=== PATIENT | male | born 1965 | race Caucasian/White ===

== ENCOUNTER 2017-06-08 18:17 | Emergency (ER) | payer SELFPAY ==
[~2017-06-08] VITALS: Ht 177.8 cm; Wt 80.0 kg
[2017-06-08 19:03] VITALS: BP 120/77; PULSE 113; RESP 18; TEMP 98.2; O2SAT 86
--- NOTE | 2017-06-08 20:52 | PD ---
HPI Chief Complaint: Alcohol/Drug Intoxication Time Seen by Provider: 20:40 Travel History International Travel<30 days: No Contact w/Intl Traveler<30days: No Traveled to known affect area: No History of Present Illness HPI 51-year-old male [place] [employer] for evaluation of alcohol intoxication. Apparently the patient became intoxicated in a public area and the police decided to bring him here. He has no medical complaints. He reports that he is on vacation from [place], arrived with a friend 5 days ago, and today he drinks 6 double shots. He reports that he has not had any alcohol in over 18 years and so he became intoxicated. He denies any injuries and he has no complaints at this time. [facility] Social History Alcohol Use: Yes Tobacco Use: Yes Allergies-Medications (Allergen,Severity, Reaction): Coded Allergies: No Known Allergies (Unverified , 06/08/17) Review of Systems ROS Limitations: Intoxication Except as stated in HPI: all other systems reviewed are Neg Physical Exam Exam Limitations: Intoxication Narrative GENERAL: Well-developed well-nourished male answering questions appropriately but obviously intoxicated. SKIN: Warm and dry. HEAD: Atraumatic. Normocephalic. EYES: Pupils equal and round. No scleral icterus. No injection or drainage. ENT: No nasal bleeding or discharge. Mucous membranes pink and moist. NECK: Trachea midline. No JVD. CARDIOVASCULAR: Regular rate and rhythm. No murmur appreciated. RESPIRATORY: No accessory muscle use. Clear to auscultation. Breath sounds equal bilaterally. GASTROINTESTINAL: Abdomen soft, non-tender, nondistended. Hepatic and splenic margins not palpable. MUSCULOSKELETAL: No obvious deformities. No clubbing. No cyanosis. No edema. NEUROLOGICAL: Awake and alert. No obvious cranial nerve deficits. Motor grossly within normal limits. Slurred speech, ataxic Data Data Last Documented VS Vital Signs Date Time Temp Pulse Resp B/P (MAP) Pulse Ox O2 Delivery O2 Flow Rate FiO2 06/08/17 19:03 98.2 113 18 120/77 (91) 86 Orders Orders Alcohol (Ethanol) (06/08/17 21:00) Labs Laboratory Tests Test 06/08/17 21:04 Ethyl Alcohol Level 150 MG/DL MDM Medical Decision Making Medical Screen Exam Complete: Yes Emergency Medical Condition: Yes Medical Record Reviewed: Yes Differential Diagnosis Alcohol intoxication, closed head injury, substance-induced mood disorder Narrative Course The patient will remain here until he is clinically sober or until he is able to obtain a sober ride home. The patient required multiple attempts at redirection in order to keep him in his bed-he continue to get up and stumble and almost fall. He is requesting proof that he is intoxicated. Therefore an alcohol level has been ordered. Alcohol level is 150. The patient will remain here until his alcohol level is felt to be under 80 at approximately midnight. Diagnosis Primary Impression: Alcohol intoxication Med/Other Pt SpecificInfo: No Change to Meds Disposition: 01 DISCHARGE HOME Condition: Stable [place] Sandra Jun 08, 2017 20:52
== END 2017-06-09 00:01 | disposition home or self-care (01) ==
LOC: NEPD 18:17 → NEDAMB 06-09 00:01
DX: F10.920 Alcohol use, unspecified with intoxication, uncomplicated (principal); Y90.6 Blood alcohol level of 120-199 mg/100 ml; Z72.0 Tobacco use
CPT/HCPCS: 80307; 99283